=== PATIENT | male | born 1940 | race Caucasian/White ===

== ENCOUNTER → 2017-05-29 | Outpatient (CLI) | payer MEDICARE ==
[~2017-05-29] MED LIST: ASPI81TA82 PO; FLEC50TA PO; GLUCTAB OR; NEXI40CA PO; NORV2.5T11 PO; PRAD150C PO; ROSU40 PO
[2017-05-29 09:45] LABS: BASOPHIL # 0.1 TH/MM3 (0-0.2); BASOPHIL % 2.8 % (0.0-2.0); EOSINOPHIL # 0.2 TH/MM3 (0-0.4); EOSINOPHIL % 4.5 % (0.0-4.0); HEMATOCRIT 30.5 % (39.0-51.0); HEMO FLAGS DIFF FINAL; LYMPH % 33.5 % (9.0-44.0); LYMPHOCYTE # 1.4 TH/MM3 (1.0-4.8); MEAN CELL VOLUME 66.4 FL (80.0-100.0); MEAN CORPUSCULAR HEMOGLOBIN 19.5 PG (27.0-34.0); MONO % 9.3 % (0.0-8.0); NEUT % 49.9 % (16.0-70.0); PLATELET COUNT 231 TH/MM3 (150-450); RED BLOOD COUNT 4.59 MIL/MM3 (4.50-5.90)
[2017-05-29 09:46] LABS: MEAN CORPUSCULAR HGB CONC 29.4 % (32.0-36.0)
[2017-05-29 10:09] LABS: TRANSFERRIN IRON PROFILE 332 MG/DL (200-360)
== END ==
LOC: CLAB 09:25
PROVIDERS: ATTEND Family Medicine
DX: D64.9 Anemia, unspecified (principal)
CPT/HCPCS: 36415; 82607; 82746; 83540; 83550; 85025; 85060